=== PATIENT | male | born 1985 | race Caucasian/White ===

== ENCOUNTER 2020-10-03 10:12 | Outpatient (REF) | payer OTHER, SELFPAY ==
[2020-10-03 10:31] LABS: COVID-19 Test Negative (Negative)
== END 2020-10-03 10:13 | disposition home or self-care (01) ==
LOC: HO.EMPCOV 10:12
PROVIDERS: Visit Provider Internal Medicine
DX: Z20.822 Contact with and (suspected) exposure to COVID-19 (principal)
CPT/HCPCS: 36415; 87635; C9803

== ENCOUNTER 2021-10-03 13:36 | Outpatient (REF) | payer OTHER, SELFPAY ==
--- NOTE | ~2021-10-03 | XR_ITS ---
EXAMINATION: XR FOOT, LEFT CLINICAL INFORMATION: Trauma, pain, swelling. COMPARISON: None TECHNIQUE: AP, lateral, and oblique views of the left foot. FINDINGS: No acute or healing fracture, dislocation, or destructive process. Normal bony mineralization. No joint narrowing or erosive change. There is small plantar calcaneal spur. The subtalar joint appears normal. The retrocalcaneal recess is preserved. XR/XR foot LT min 3V IMPRESSION: -No fracture, dislocation, or arthropathy. -Small plantar calcaneal spur.
== END 2021-10-03 13:37 | disposition home or self-care (01) ==
LOC: HO.XRAY 13:36
PROVIDERS: PCP Internal Medicine; Visit Provider Internal Medicine
DX: M79.672 Pain in left foot (principal)
CPT/HCPCS: 73630